=== PATIENT | female | born 2000 | race Caucasian/White ===

== ENCOUNTER 2020-09-24 13:09 | Emergency (ER) | payer MEDICAID ==
[~2020-09-24] VITALS: Ht 157.5 cm; Wt 76.2 kg
[~2020-09-24 13:09] MED LIST: APAP/HYDROCODON1 T13 PO; LEVAQUIN750 MG PO; NOR7T PO
[2020-09-24 13:13] VITALS: Ht 157.5 cm; Wt 76.2 kg
[2020-09-24 14:19] LABS: UA SPECIFIC GRAVITY 1.025 (1.005-1.035); microscopic required? YES; urine erythrocyte TRACE (NEGATIVE)
[2020-09-24 14:26] LABS: BASOPHIL % 0.8 % (0.2-1.3); PLATELET COUNT 295 x10^3mcL (179-408); RED CELL DISTRIBUTION WIDTH 13.4 % (12.3-17.7)
[2020-09-24 14:28] LABS: AMPHETAMINE QUAL UR NONE DETECTED (See below)
[2020-09-24 14:36] LABS: CALCIUM 8.6 mg/dL (8.5-10.1); CHLORIDE SERUM 106 mmol/L (98-107); CREATININE SERUM 0.7 mg/dL (0.6-1.0); GFR1 > 60 mL/min; GLUCOSE SERUM 87 mg/dL (74-106); POTASSIUM SERUM 3.8 mmol/L (3.5-5.1); SODIUM SERUM 142 mmol/L (136-145)
[2020-09-24 14:39] LABS: ALBUMIN 3.9 g/dL (3.4-5.0); ALKALINE PHOSPHATASE 72 U/L (46-116); ALT/SGPT 27 U/L (14-59); AST/SGOT 17 U/L (15-37); BILIRUBIN TOTAL 0.4 mg/dL (0.20-1.00); LIPASE 63 IU/L (73-393); TOTAL PROTEIN, SERUM 7.2 g/dL (6.4-8.2)
[2020-09-24 15:36] VITALS: BP 112/60
== END 2020-09-24 15:36 | disposition home or self-care (01) ==
LOC: ED 13:09
PROVIDERS: Emergency Medicine
DX: R07.81 Pleurodynia (principal); E66.9 Obesity, unspecified; Z68.30 Body mass index [BMI] 30.0-30.9, adult; Z20.828 Contact with and (suspected) exposure to other viral communicable diseases
CPT/HCPCS: 85378; U0003